=== PATIENT | male | born 1990 | race Hispanic/Latino ===

== ENCOUNTER 2017-11-29 02:03 | Emergency (ER) | payer SELFPAY ==
[2017-11-29] MEDS ORDERED: LIDOCAINE 1% MPF 5 ML VIAL ONE (02:16)
--- NOTE | 2017-11-29 02:56 | EDPHYS ---
Physician Documentation [facility] Name: Nusrat Mendoza Age: 27 yrs Sex: Male : 1990 Arrival Date: 11/29/2017 Time: 02:04 Bed 14 Private MD: ED Physician Surinder Weber HPI: 11/29 02:49 This 27 yrs old Male presents to ER via Ambulatory with complaints of jr8 Laceration To Hand. 02:49 The patient has a laceration related to: fishing occurred outdoors. The laceration(s) jr8 is(are) located on the right hand. Onset: The symptoms/episode began/occurred acutely, today. Associated signs and symptoms: The patient has no apparent associated signs or symptoms. The patient has not experienced similar symptoms in the past. The patient has not recently seen a physician. Historical: - Allergies: 02:14 No Known Allergies; ea - Home Meds: 02:14 None [Active]; ea - PMHx: 02:14 None; ea - PSHx: 02:14 left wrist; ea - Immunization history:: Adult Immunizations up to date, Last tetanus immunization: unknown. - Social history:: Smoking status: Patient/guardian denies using tobacco. - Ebola Screening: : No symptoms or risks identified at this time. ROS: 02:49 Eyes: Negative for injury, pain, redness, and discharge, ENT: Negative for injury, jr8 pain, and discharge, Neck: Negative for injury, pain, and swelling, Cardiovascular: Negative for chest pain, palpitations, and edema, Respiratory: Negative for shortness of breath, cough, wheezing, and pleuritic chest pain, Abdomen/GI: Negative for abdominal pain, nausea, vomiting, diarrhea, and constipation, Back: Negative for injury and pain, MS/Extremity: Negative for injury and deformity, Neuro: Negative for headache, weakness, numbness, tingling, and seizure. 02:49 Skin: Positive for laceration(s), of the right hand. Exam: 02:49 Cardiovascular: Regular rate and rhythm with a normal S1 and S2. No gallops, murmurs, jr8 or rubs. Normal PMI, no JVD. No pulse deficits. Respiratory: Lungs have equal breath sounds bilaterally, clear to auscultation and percussion. No rales, rhonchi or wheezes noted. No increased work of breathing, no retractions or nasal flaring. Neuro: Awake and alert, GCS 15, oriented to person, place, time, and situation. Cranial nerves II-XII grossly intact. Motor strength 5/5 in all extremities. Sensory grossly intact. Cerebellar exam normal. Normal gait. 02:49 Musculoskeletal/extremity: ROM: full active range of motion, limited passive range of motion, in the right ring finger, Circulation is intact in all extremities. Sensation intact. Tendon exam: postive for complete laceration right flexor tendon or ring finger . 02:49 Skin: injury, laceration(s), the wound is approximately 2.5 cm(s), with a depth of .5 cm(s), of the palmar aspect of proximal phalanx of right ring finger, the second wound is approximately 2.5 cm(s), with a depth of .3 cm(s), of the palmar aspect of middle phalanx of right little finger, that can be described as no foreign body, linear, with mild bleeding. Vital Signs: 02:18 BP 145 / 89; Pulse 98; Resp 18; Temp 98(O); Pulse Ox 98% ; Weight 81.65 kg; Height 5 ea ft. 2 in. (157.48 cm); Pain 8/10; 03:24 BP 128 / 73; Pulse 78; Resp 18; Pulse Ox 99% on R/A; ea 02:18 Body Mass Index 32.92 (81.65 kg, 157.48 cm) ea Procedures: 02:54 Splinting: Splint applied to right ringer finger using finger splint, applied by nurse. jr8 Examined by al, post splint application: neurovascular intact, 2+ distal pulses palpable, brisk capillary refill noted, Patient tolerated well. Laceration: 02:49 Wound Repair of 2.5cm ( 1.0in ) subcutaneous laceration to palmar aspect of proximal jr8 phalanx of right ring finger. Linear shaped.. Minimal bleeding noted.. Distal neuro/vascular/tendon intact. Anesthesia: Local anesthetic administered with 1 mls of 1% lidocaine. Wound prep: Extensive cleansing with betadine, Wound irrigation with saline, Wound explored extensively. Skin closed with 6 4-0 Prolene using interrupted sutures and sterile technique. Patient tolerated well. 02:49 Wound Repair of 2.5cm ( 1.0in ) subcutaneous laceration to palmar aspect of proximal jr8 phalanx of right little finger. Linear shaped.. Distal neuro/vascular/tendon intact. Anesthesia: Local anesthetic administered with 1 mls of 1% lidocaine. Wound prep: Extensive cleansing with betadine, Wound irrigation with saline, Wound explored extensively. Skin closed with 6 4-0 Prolene using interrupted sutures and sterile technique. Patient tolerated well. MDM: 02:10 Patient medically screened. 8 02:49 Data reviewed: vital signs, nurses notes, and as a result, I will discharge patient. jr8 Data interpreted: Pulse oximetry: on room air is 98 %. Interpretation: normal. Counseling: I had a detailed discussion with the patient and/or guardian regarding: the historical points, exam findings, and any diagnostic results supporting the discharge/admit diagnosis, the need for outpatient follow up, a hand specialist, to return to the emergency department if symptoms worsen or persist or if there are any questions or concerns that arise at home. 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 Exp: aa1 12/26/2019. Lot #: [id number]. } Route: IM; Site: left deltoid; 03:25 Follow up: Response: No adverse reaction ea 03:18 Drug: [place] (7.5 mg-325 mg) 1 tabs Route: PO; aa1 03:25 Follow up: Response: No adverse reaction; Pain is decreased ea Disposition: 11/29/17 02:56 Discharged to Home. Impression: Laceration of flexor muscle, fascia and tendon of right ring finger at wrist and hand level, Laceration without foreign body of right little finger without damage to nail. - Condition is Stable. - Discharge Instructions: Laceration Care, Adult, Tendon Repair. - Prescriptions for Ibuprofen 800 mg Oral Tablet - take 1 tablet by ORAL route every 12 hours As needed take with food; 20 tablet. Tylenol- Codeine #3 300-30 mg Oral Tablet - take 2 tablets by ORAL route every 6 hours As needed; 12 tablet. Keflex 500 mg Oral Capsule - take 1 capsule by ORAL route every 8 hours for 5 days; 15 capsule. - Medication Reconciliation Form, Thank You Letter, Antibiotic Education, Prescription Opioid Use form. - Follow up: Junior Welch MD; When: 2 - 3 days; Reason: Recheck today's complaints, Continuance of care, Re-evaluation by your physician. - Problem is new. - Symptoms have improved. Addendum: 12/02/2017 17:30 Co-signature as Attending Physician, Surinder Weber MD. g s Signatures: Rupinder Leonard, RN RN aa1 Isabel Pugh RN RN fc Jacoby Spann PA PA jr8 Natalie Lucio RN RN Surinder Bolden MD MD Corrections: (The following items were deleted from the chart) 11/29 03:25 02:56 11/29/2017 02:56 Discharged to Home. Impression: Laceration of flexor muscle, ea fascia and tendon of right ring finger at wrist and hand level; Laceration without foreign body of right little finger without damage to nail. Condition is Stable. Forms are Medication Reconciliation Form, Thank You Letter, Antibiotic Education, Prescription Opioid Use. Follow up: Junior Welch; When: 2 - 3 days; Reason: Recheck today's complaints, Continuance of care, Re-evaluation by your physician. Problem is new. Symptoms have improved. jr8
--- NOTE | 2017-11-29 02:56 | ER ---
Nurse's Notes [facility] Name: Nusrat Mendoza Age: 27 yrs Sex: Male : 1990 Arrival Date: 11/29/2017 Time: 02:04 Bed 14 Private MD: Diagnosis: Laceration of flexor muscle, fascia and tendon of right ring finger at wrist and hand level;Laceration without foreign body of right little finger without damage to nail Presentation: 11/29 02:10 Presenting complaint: Patient states: States about 15 minutes ago he was fishing and ea was cutting bait, missed the bait and cut his right hand. Transition of care: patient was not received from another setting of care. Complicating Factors: There are no complicating factors for this patient. Onset of symptoms was November 29, 2017. Risk Assessment: Do you want to hurt yourself or someone else? Patient reports no desire to harm self or others. Initial Sepsis Screen: Does the patient meet any 2 criteria? No. Patient's initial sepsis screen is negative. Does the patient have a suspected source of infection? No. Patient's initial sepsis screen is negative. Care prior to arrival: None. 02:10 Method Of Arrival: Ambulatory ea 02:10 Acuity: JEFFREY 3 ea Triage Assessment: 02:16 General: Appears uncomfortable, Behavior is calm, cooperative, appropriate for age. ea Pain: Complains of pain in right hand Pain currently is 8 out of 10 on a pain scale. EENT: No signs and/or symptoms were reported regarding the EENT system. Neuro: Level of Consciousness is awake, alert, obeys commands, Oriented to person, place, time, situation. Cardiovascular: Patient's skin is warm and dry. Respiratory: Airway is patent Respiratory effort is even, unlabored, Respiratory pattern is regular, symmetrical. Derm: Skin is pink, warm \T\ dry. Injury Description: Laceration sustained to palmar aspect of middle phalanx of right little finger, palmar aspect of proximal phalanx of right little finger, palmar aspect of proximal phalanx of right ring finger and palmar aspect of middle phalanx of right middle finger is clean, 2.6 to 7.5 cm long, was sustained less than 30 minutes ago. is bleeding a small amount. Historical: - Allergies: 02:14 No Known Allergies; ea - Home Meds: 02:14 None [Active]; ea - PMHx: 02:14 None; ea - PSHx: 02:14 left wrist; ea - Immunization history:: Adult Immunizations up to date, Last tetanus immunization: unknown. - Social history:: Smoking status: Patient/guardian denies using tobacco. - Ebola Screening: : No symptoms or risks identified at this time. Screenin:19 Abuse screen: Denies threats or abuse. Nutritional screening: No deficits noted. ea Tuberculosis screening: No symptoms or risk factors identified. Fall Risk None identified. Assessment: 03:21 Reassessment: Patient and/or family updated on plan of care and expected duration. Pain ea level reassessed. Patient is alert, oriented x 3, equal unlabored respirations, skin warm/dry/pink. Discharge instruction given to patient, verbalized the understanding of instruction. Musculoskeletal: Range of motion: limited in DIP of right ring finger, PIP of right ring finger and MCP of right ring finger. Vital Signs: 02:18 BP 145 / 89; Pulse 98; Resp 18; Temp 98(O); Pulse Ox 98% ; Weight 81.65 kg; Height 5 ea ft. 2 in. (157.48 cm); Pain 8/10; 03:24 BP 128 / 73; Pulse 78; Resp 18; Pulse Ox 99% on R/A; ea 02:18 Body Mass Index 32.92 (81.65 kg, 157.48 cm) ea ED Course: 02:04 Patient arrived in ED. ds1 02:05 Jacoby Spann PA is PHCP. jr8 02:05 Surinder Weber MD is Attending Physician. jr8 02:14 Triage completed. ea 02:19 Patient has correct armband on for positive identification. Bed in low position. Call ea light in reach. 02:19 Arm band placed on right wrist. Patient placed in an exam room, on a stretcher, on ea pulse oximetry. 02:31 Rupinder Leonard RN is Primary Nurse. aa1 02:54 Junior Welch MD is Referral Physician. jr8 03:24 Assist provider with laceration repair on palmar aspect of middle phalanx of right ea middle finger and palmar aspect of proximal phalanx of right ring finger and palmar aspect of proximal phalanx of right little finger and palmar aspect of middle phalanx of right little finger that was between 2.6 to 7.5 cm using sutures. Set up tray. Performed by Jacoby JACKSON Dressed with Kerlix, Neosporin, Patient tolerated well. Patient did not have IV access during this emergency room visit. 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 Exp: aa1 12/26/2019. Lot #: [id number]. } Route: IM; Site: left deltoid; 03:25 Follow up: Response: No adverse reaction ea 03:18 Drug: [place] (7.5 mg-325 mg) 1 tabs Route: PO; aa1 03:25 Follow up: Response: No adverse reaction; Pain is decreased ea Outcome: 02:56 Discharge ordered by MD. still 03:24 Discharged to home ambulatory. ea 03:24 Condition: improved 03:24 Discharge instructions given to patient, Instructed on discharge instructions, follow up and referral plans. medication usage, Demonstrated understanding of instructions, follow-up care, medications, Prescriptions given X 3. 03:25 Patient left the ED. ea Signatures: Rupinder Leonard RN Isabel Bryson RN RN fc [place], Demi ds1 Roszak, Josh, PA PA jrNatalie Mcduffie RN RN ea
[2017-11-29] MEDS ORDERED: TETANUS & DIPHTHERIA TOX,ADULT 0.5 ML VIAL ONE (02:59)
[2017-11-29] MEDS ORDERED: HYDROCODONE/APAP 7.5/325 MG TAB ONE (03:11)
== END 2017-11-29 03:25 | disposition home or self-care (01) ==
LOC: ER 02:03
PROC: 0HQFXZZ Repair Right Hand Skin, External Approach (ICD-10-PCS; principal; 2017-11-29)
DX: S61.411A Laceration without foreign body of right hand, initial encounter (principal); W26.0XXA Contact with knife, initial encounter; Y93.19 Activity, other involving water and watercraft; Y92.89 Other specified places as the place of occurrence of the external cause; Z23 Encounter for immunization
CPT/HCPCS: 90714; 99284